=== PATIENT | female | born 1955 | race Caucasian/White ===

== ENCOUNTER → 2016-09-14 | Outpatient (CLI) | payer OTHER ==
[~2016-09-14] MED LIST: ASPI-586 PO; CITA20TA12 PO; ESTR1TAB24 PO; HCT25T PO; HYDR-3729 PO; IBUP-1773 PO; LVT.1T PO; MEDR2.5T6 PO; MTC10T; OMEG-109 PO; OMEP20CA12; POTA10TA36 PO
--- NOTE | 2016-09-15 17:39 | Diagnostic Imaging Report ---
Bilateral screening mammogram 2D views with tomosynthesis. The current study was also evaluated with a Computer Aided Detection (CAD) system. INDICATION: Screening. No current complaints stated on the questionnaire. COMPARISON: 05/20/15 FINDINGS: The breasts are composed of scattered fibroglandular densities. There are punctate scattered calcifications seen. Allowing for technique and positional differences, no suspicious change is seen. IMPRESSION: No significant change. ACR BI-RADS Category 2: Benign findings. Result letter will be mailed to the patient. Note: At least 10% of breast cancer is not imaged by mammography. Dictated by: Dictated on workstation # [id number]
== END ==
LOC: RAD 14:16
PROVIDERS: ATTEND Nurse Practitioner
DX: Z12.31 Encounter for screening mammogram for malignant neoplasm of breast (principal)
CPT/HCPCS: 77067

== ENCOUNTER 2016-11-14 20:23 | Inpatient (IN) | payer OTHER ==
[~2016-11-14] VITALS: Ht 154.9 cm; Wt 66.2 kg
[2016-11-14] MEDS ORDERED: CNC1KV INJ (20:46)
[2016-11-14] MEDS ORDERED: fentaNYL INJECTION 100 MCG/2 ML AMP IVP STA (21:14)
[2016-11-14 21:45] LABS: BASOPHILS % (AUTO) 0 % (0-10); EOSINOPHILS # (AUTO) 0.1 10^3/uL (0.0-0.3); EOSINOPHILS % (AUTO) 1 % (0-10); LYMPHOCYTES # (AUTO) 2.9 X 10^3 (1.0-4.0); LYMPHOCYTES % (AUTO) 22 % (12-44); MEAN CORPUSCULAR HEMOGLOBIN 31 PG (25-34); MEAN CORPUSCULAR HGB CONC 34 G/DL (32-36); MEAN CORPUSCULAR VOLUME 91 FL (80-99); MEAN PLATELET VOLUME 10.5 FL (7.4-10.4); MONOCYTES # (AUTO) 0.9 X 10^3 (0.0-1.0); MONOCYTES % (AUTO) 7 % (0-12); NEUTROPHILS # (AUTO) 8.9 X 10^3 (1.8-7.8); NEUTROPHILS % (AUTO) 69 % (42-75); PLATELET COUNT 287 10^3/uL (130-400); RED BLOOD COUNT 4.55 10^6/uL (4.35-5.85); RED CELL DISTRIBUTION WIDTH 13.1 % (10.0-14.5); WHITE BLOOD COUNT 12.8 10^3/uL (4.3-11.0)
[2016-11-14 22:03] LABS: ALANINE AMINOTRANSFERASE 21 U/L (0-55); ANION GAP 15 MMOL/L (5-14); ASPARTATE AMINO TRANSFERASE 29 U/L (5-34); BILIRUBIN,TOTAL 0.5 MG/DL (0.1-1.0); BLOOD UREA NITROGEN 14 MG/DL (7-18); BUN/CREATININE RATIO 19; CALCIUM 9.3 MG/DL (8.5-10.1); CARBON DIOXIDE 24 MMOL/L (21-32); CHLORIDE 100 MMOL/L (98-107); CREATININE SERUM 0.74 MG/DL (0.60-1.30); GFR ESTIMATED > 60; GLUCOSE 90 MG/DL (70-105); POTASSIUM 3.2 MMOL/L (3.6-5.0); SODIUM 139 MMOL/L (135-145); TOTAL PROTEIN 7.5 GM/DL (6.4-8.2)
[2016-11-14] MEDS ORDERED: NS IV 1000 ML 1,000 ML IV ONE (22:15)
[2016-11-14] MEDS ORDERED: ORPHENADRINE 60 MG/2 ML (NORFLEX) AMP IV STA (22:15)
[2016-11-14] MEDS ORDERED: HYDROmorphone (DILAUDID) 2 MG/ML VIAL IVP STA (22:15)
[2016-11-14] MEDS ORDERED: ONDANSETRON 4 MG/2 ML (SDV) Z0FRAN IVP ONE (22:15)
--- NOTE | 2016-11-14 22:16 | Diagnostic Imaging Report ---
PROCEDURE: CT head without contrast. TECHNIQUE: Multiple contiguous axial images were obtained through the brain without the use of intravenous contrast. INDICATION: 61-year-old female on aspirin, injured in fall, headache COMPARISONS: None. FINDINGS: Midline structures are not displaced. Lateral, third, and fourth ventricles are normal in size, shape and anatomic position. There is no evidence of mass, mass effect, hydrocephalus or hemorrhage. Love-white differentiation is normal. Is no sulcal effacement. There are no abnormal extra-axial fluid collections or hemorrhage. Basilar cisterns appear normal. Sinuses, orbits and mastoid air cells are normal. Bone windows show no calvarial changes. IMPRESSION: Unremarkable nonenhanced CT brain. Dictated by: Dictated on workstation # [id number]
--- NOTE | 2016-11-14 23:16 | ED Lower Extremity ---
General Chief Complaint: Lower Extremity Stated Complaint: RT TIB/FIB FRACTURE, INTRACTABLE PX Nursing Triage Note: ADIN Gonzalez.Carlos Manuel. TRANSFER FROM [facility]. Nursing Sepsis Screen: No Definite Risk Source: patient, family, other [place] [place] Exam Limitations: no limitations History of Present Illness Time seen by provider: 21:30 Initial Comments 61 yo female patient presents to the ED in [place] [facility] [place] Rt Tib/fib fx. patient states she was walking along an incline at [place]. States she lost her balance and fell down the hill. Denies hitting her head or LOC. Brea was taken to [facility] where conscious sedation and reduction was performed by the ED physician. Case was discussed with their orthopaedic surgeon, but he was not gleason operator this weekend and they did not have ortho coverage. He recommended to the ED physician for the patient to be sent to a facility with ortho coverage this evening. patient requested to come to [facility] as she has family in [place]. Patient reports pain is a 9/10 at this time. Denies neck pain, back pain, chest pain, SOA, numbness , tingling. patient does take 81 mg of ASA daily. Location Injury Occurred: home Onset: this afternoon Pain/Injury Location: right leg, right ankle Method of Injury: fell Modifying Factors: Worse With Movement Allergies and Home Medications Allergies Coded Allergies: meperidine (Verified Allergy, Severe, 11/15/16) severe nausea and vomiting morphine (Verified Allergy, Severe, 11/15/16) severe nausea and vomiting Uncoded Allergies: NARCOTIC SENSITIVITY (Adverse Reaction, Severe, NAUSEA & VOMITTING, ) Home Medications Aspirin 81 Mg Tablet.dr, 81 MG PO HS, (Reported) Citalopram Hydrobromide 20 Mg Tablet, 20 MG PO HS, (Reported) Cyanocobalamin 1,000 Mcg/Ml Inj, 1,000 MCG INJ MONTHLY, (Reported) TYPICALLY TAKES AROUND THE 16TH OF EVERY MONTH Docusate Sodium 250 Mg Capsule, 250 MG PO HS, (Reported) Estradiol 1 Mg Tablet, 1 MG PO DAILY, (Reported) Estradiol 42.5 Gm Cream.appl, 0.5 GM VG PRN, (Reported) Fexofenadine HCl 180 Mg Tablet, 180 MG PO DAILY, (Reported) Hydrochlorothiazide 25 Mg Tablet, 50 MG PO DAILY, (Reported) TAKES 2 (25 MG) TABLETS Levothyroxine Sodium 88 Mcg Tablet, 88 MCG PO DAILY, (Reported) Medroxyprogesterone Acetate 5 Mg Tablet, 5 MG PO DAILY, (Reported) Potassium Chloride 10 Meq Capsule.er, 10 MEQ PO DAILY, (Reported) Constitutional: No dizziness, No weakness EENTM: no symptoms reported Respiratory: No cough, No short of breath Cardiovascular: No chest pain, No palpitations Gastrointestinal: no symptoms reported Genitourinary: no symptoms reported Musculoskeletal: see HPI, No back pain, joint pain, No neck pain Skin: no symptoms reported Psychiatric/Neurological: Denies Headache, Denies Numbness, Denies Paresthesia , Denies Seizure, Denies Tingling, Denies Weakness All Other Systems Reviewed Negative Unless Noted: Yes (Negative excepted noted.) Past Bcfqsvs-Dechqv-Iigcnk Hx Patient Social History Alcohol Use: Denies Use Recreational Drug Use: No Smoking Status: Never a Smoker Recent Foreign Travel: No Contact w/Someone Who Travel: No Recent Infectious Disease Expo: No Recent Hopitalizations: No Immunizations Up To Date Tetanus Booster (TDap): Unknown Date of Influenza Vaccine: Nov 30, 2015 Seasonal Allergies Seasonal Allergies: No Surgeries History of Surgeries: Yes (ABDOMINOPLASTY,WISDOM TEETH EXT.,BREAST BIOPSY, d&C) Respiratory History of Respiratory Disorde: No Currently Using CPAP: No Currently Using BIPAP: No Cardiovascular History of Cardiac Disorders: No Neurological History of Neurological Disord: No Reproductive System : No Hx Reproductive Disorders: Yes (pmb) Sexually Transmitted Disease: No HIV/AIDS: No Female Reproductive Disorders: Denies 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 Gastrointestinal History of Gastrointestinal Di: Yes Gastrointestinal Disorders: Gastroesophageal Reflux Musculoskeletal History of Musculoskeletal Dis: No Endocrine History of Endocrine Disorders: Yes Endocrine Disorders: Hypothyroidsim HEENT Loss of Vision: Denies Hearing Impairment: Denies Cancer History of Cancer: No Psychosocial History of Psychiatric Problem: No Integumentary History of Skin or Integumenta: No Blood Transfusions History of Blood Disorders: No Reviewed Nursing Assessment Reviewed/Agree w Nursing PMH: Yes Family Medical History Significant Family History: No Pertinent Family Hx Physical Exam Vital Signs Vital Sign - Last 12Hours 11/14/16 20:46 Temp 99.1 Pulse 70 Resp 16 B/P (MAP) 127/66 Pulse Ox 94 O2 Delivery Room Air Capillary Refill : Less Than 3 Seconds General Appearance: WD/WN, no apparent distress HEENT: PERRL/EOMI, pharynx normal Neck: non-tender, full range of motion, supple, normal inspection Cardiovascular: normal peripheral pulses, regular rate, rhythm, no murmur Respiratory: lungs clear, normal breath sounds, no respiratory distress, no accessory muscle use Gastrointestinal: non tender, soft, No distended Back: normal inspection, no vertebral tenderness Hips: bilateral hip non-tender, bilateral hip normal inspection, bilateral hip normal range of motion, bilateral hip no evidence of injury Legs: left leg non-tender, left leg normal inspection, left leg normal range of motion, left leg no evidence of injury, right leg other (rt thigh nontender and no evidence of deformity, swelling, or ecchymosis. Rt distal leg splint intact.) Knees: bilateral knee non-tender, bilateral knee normal inspection, bilateral knee normal range of motion, bilateral knee no evidence of injury Ankles: left ankle non-tender, left ankle normal inspection, left ankle normal range of motion, left ankle no evidence of injury, right ankle other (splint intact) Feet: left foot non-tender, left foot normal inspection, left foot normal range of motion, left foot no evidence of injury, right foot other (rt splint intact. no cyanosis, ecchymosis, tenderness, swelling, or deformity of the toes. Capillary refill <3 seconds.) Neurologic/Tendon: normal sensation, normal motor functions, normal tendon functions, responds to pain, no evidence tendon injury Neurologic/Psychiatric: platform operations director II-XII nml as tested, no motor/sensory deficits, alert, normal mood/affect, oriented x 3 Skin: normal color, warm/dry Progress/Results/Core Measures Results/Orders Lab Results Laboratory Tests Test 11/14/16 21:35 Range/Units White Blood Count 12.8 H 4.3-11.0 10^3/uL Red Blood Count 4.55 4.35-5.85 10^6/uL Hemoglobin 14.1 11.5-16.0 G/DL Hematocrit 41 35-52 % Mean Corpuscular Volume 91 80-99 FL Mean Corpuscular Hemoglobin 31 25-34 PG Mean Corpuscular Hemoglobin Concent 34 32-36 G/DL Red Cell Distribution Width 13.1 10.0-14.5 % Platelet Count 287 130-400 10^3/uL Mean Platelet Volume 10.5 H 7.4-10.4 FL Neutrophils (%) (Auto) 69 42-75 % Lymphocytes (%) (Auto) 22 12-44 % Monocytes (%) (Auto) 7 0-12 % Eosinophils (%) (Auto) 1 0-10 % Basophils (%) (Auto) 0 0-10 % Neutrophils # (Auto) 8.9 H 1.8-7.8 X 10^3 Lymphocytes # (Auto) 2.9 1.0-4.0 X 10^3 Monocytes # (Auto) 0.9 0.0-1.0 X 10^3 Eosinophils # (Auto) 0.1 0.0-0.3 10^3/uL Basophils # (Auto) 0.0 0.0-0.1 10^3/uL Sodium Level 139 135-145 MMOL/L Potassium Level 3.2 L 3.6-5.0 MMOL/L Chloride Level 100 98-107 MMOL/L Carbon Dioxide Level 24 21-32 MMOL/L Anion Gap 15 H 5-14 MMOL/L Blood Urea Nitrogen 14 7-18 MG/DL Creatinine 0.74 0.60-1.30 MG/DL Estimat Glomerular Filtration Rate > 60 BUN/Creatinine Ratio 19 Glucose Level 90 70-105 MG/DL Calcium Level 9.3 8.5-10.1 MG/DL Total Bilirubin 0.5 0.1-1.0 MG/DL Aspartate Amino Transf (AST/SGOT) 29 5-34 U/L Alanine Aminotransferase (ALT/SGPT) 21 0-55 U/L Alkaline Phosphatase 47 40-136 U/L Total Protein 7.5 6.4-8.2 GM/DL Albumin 4.0 3.2-4.5 GM/DL My Orders Orders - SHERI AGUERO Outside Films For Comparison (11/14/16 ) Fentanyl Injection (Sublimaze Injection (11/14/16 21:14) Ct Head Wo (11/14/16 21:25) Saline Lock/Iv-Start (11/14/16 21:25) Cbc With Automated Diff (11/14/16 21:25) Comprehensive Metabolic Panel (11/14/16 21:25) Tibia/Fibula, Right, 2 Views (11/14/16 22:06) Hydromorphone Injection (Dilaudid Inject (11/14/16 22:15) Orphenadrine Injection (Norflex Injectio (11/14/16 22:15) Ns Iv 1000 Ml (Sodium Chloride 0.9%) (11/14/16 22:15) Ondansetron Injection (Zofran Injectio (11/14/16 22:15) Medications Given in ED Vital Signs/I&O Vital Sign - Last 12Hours 11/14/16 11/14/16 20:46 21:36 Temp 99.1 99.1 Pulse 70 Resp 16 B/P (MAP) 127/66 Pulse Ox 94 O2 Delivery Room Air Blood Pressure Mean: 86 Diagnostic Imaging Diagonstic Imaging: CT Plain Films/CT/US/NM/MRI: head Comments FINDINGS: Midline structures are not displaced. Lateral, third, and fourth ventricles are normal in size, shape and anatomic position. There is no evidence of mass, mass effect, hydrocephalus or hemorrhage. Love-white differentiation is normal. Is no sulcal effacement. There are no abnormal extra- axial fluid collections or hemorrhage. Basilar cisterns appear normal. Sinuses, orbits and mastoid air cells are normal. Bone windows show no calvarial changes. IMPRESSION: Unremarkable nonenhanced CT brain. Dictated by: Dictated on workstation # [id number] Reviewed: Reviewed by Me (radiology report reviewed by me) Diagonstic Imaging: Xray Plain Films/CT/US/NM/MRI: other (left tib/fib) Comments comminuted spiral fracture of the distal rt tibia with extension into the joint. spiral fracture of the distal fibula. Reviewed: Reviewed/Discussed (with Dr. Sharpe) Departure Communication (Admissions) Time/Spoke to Admitting Phy: 22:30 Communication Patient case discussed with Serenity Claire APRN for Dr. Gonzalez. She graciously accepts patient to their orthopaedic surgery service for pain control and surgical management in the AM. Progress Notes Patient seen and evaluated. [place] ED records reviewed. Pt is 61 yo, on asa, and sustained a fall. CT scan of the head to rule out skull fracture and bleed and baseline labs obtained. Two-view right ankle radiographs obtained at the request of Serenity Claire APRN. Patient was given 50 mcg of fentanyl IV as well as 0.5 mg of dilaudid. Patient was noted to have improvement in pain with the dilaudid. Plan for admission for an control as well as surgical management by Dr. Gonzalez. Plan for admission discussed with the patient and family. All verbalize understanding and agree with the treatment plan. Plan for admission discussed with Dr. Sharpe, he agrees with the plan of care. Impression Impression: Primary Impression: Closed fracture of right tibia and fibula Qualified Codes: S82.201A - Unspecified fracture of shaft of right tibia, initial encounter for closed fracture; S82.401A - Unspecified fracture of shaft of right fibula, initial encounter for closed fracture Additional Impression: Intractable pain Disposition: ADMITTED INPATIENT Condition: Stable Admissions Decision to Admit Reason: Admit from ER (General) Decision to Admit/Date: Nov 14, 2016 Time/Decision to Admit Time: 22:30 Departure-Patient Inst. Referrals: DANA NUNEZ DO (PCP) Primary Care Physician SHERI AGUERO Nov 14, 2016 23:16
[2016-11-14] MEDS ORDERED: METOCLOPRAMIDE INJ 10 MG/2 ML (REGLAN) IV PRN (23:45)
[2016-11-14] MEDS ORDERED: ONDANSETRON 4 MG/2 ML (SDV) Z0FRAN IV PRN (23:45)
[2016-11-14] MEDS: NS W/KCL 20 MEQ/L 1,000 ML IV SCH (23:56)
[2016-11-15] VITALS: BP 109/74
[2016-11-15] MEDS ORDERED: DOCU-143 PO (01:09)
[2016-11-15] MEDS ORDERED: FEXO180T84 PO (01:11)
[2016-11-15] MEDS: HYDROmorphone (DILAUDID) 2 MG/ML VIAL IV PRN ×3 (01:20→08:37)
[2016-11-15 04:00] VITALS: BP 123/58
[2016-11-15 05:14] LABS: BASOPHILS % (AUTO) 0 % (0-10); EOSINOPHILS # (AUTO) 0.1 10^3/uL (0.0-0.3); EOSINOPHILS % (AUTO) 2 % (0-10); LYMPHOCYTES # (AUTO) 1.9 X 10^3 (1.0-4.0); LYMPHOCYTES % (AUTO) 27 % (12-44); MEAN CORPUSCULAR HEMOGLOBIN 31 PG (25-34); MEAN CORPUSCULAR HGB CONC 33 G/DL (32-36); MEAN CORPUSCULAR VOLUME 93 FL (80-99); MEAN PLATELET VOLUME 10.3 FL (7.4-10.4); MONOCYTES # (AUTO) 0.7 X 10^3 (0.0-1.0); MONOCYTES % (AUTO) 10 % (0-12); NEUTROPHILS # (AUTO) 4.5 X 10^3 (1.8-7.8); NEUTROPHILS % (AUTO) 62 % (42-75); PLATELET COUNT 248 10^3/uL (130-400); RED BLOOD COUNT 4.02 10^6/uL (4.35-5.85); WHITE BLOOD COUNT 7.2 10^3/uL (4.3-11.0)
[2016-11-15 05:31] LABS: ALANINE AMINOTRANSFERASE 16 U/L (0-55); ALBUMIN 3.4 GM/DL (3.2-4.5); ANION GAP 9 MMOL/L (5-14); ASPARTATE AMINO TRANSFERASE 24 U/L (5-34); BILIRUBIN,TOTAL 0.5 MG/DL (0.1-1.0); BLOOD UREA NITROGEN 12 MG/DL (7-18); BUN/CREATININE RATIO 16; CALCIUM 8.1 MG/DL (8.5-10.1); CARBON DIOXIDE 27 MMOL/L (21-32); CHLORIDE 105 MMOL/L (98-107); CREATININE SERUM 0.75 MG/DL (0.60-1.30); GFR ESTIMATED > 60; GLUCOSE 95 MG/DL (70-105); POTASSIUM 3.5 MMOL/L (3.6-5.0); SODIUM 141 MMOL/L (135-145); TOTAL PROTEIN 6.1 GM/DL (6.4-8.2)
[2016-11-15] MEDS: NS W/KCL 20 MEQ/L 1,000 ML IV SCH (05:36)
[2016-11-15] MEDS: FAMOTIDINE 20MG/2ML IV (PEPCID) IV SCH ×2 (08:36→21:01)
--- NOTE | 2016-11-15 08:55 | Diagnostic Imaging Report ---
INDICATION: Left leg pain AP, oblique, and lateral views of the left tibia and fibula are performed. There is a comminuted obliquely oriented fracture of the distal tibia, this appears to extend to the ankle joint region. There is a fracture of the posterior malleolus of the distal tibia. There is an oblique fracture of the distal fibula above the ankle joint level, with about 5 mm of lateral displacement of the distal fragment relative to proximal fragment. IMPRESSION: Comminuted distal tibial fracture with interarticular extension to the ankle joint, including a posterior malleolar fracture. Oblique fracture of the distal fibula as above. The proximal shafts of the tibia and fibula are otherwise unremarkable. Dictated by: Dictated on workstation # [id number]
[2016-11-15 09:00] VITALS: BP 133/65
[2016-11-15] MEDS ORDERED: ceFAZolin 2 GM/50 ML NS 50 ML IV NR (10:31)
[2016-11-15] MEDS ORDERED: BUPIVACAINE 0.5% 30 ML (SENSORCAINE) VIAL ONE (10:38)
[2016-11-15] MEDS ORDERED: proPOfol 200 MG/20 ML (DIPRIVAN) VIAL IV ONE (10:41)
[2016-11-15] MEDS ORDERED: LIDOCAINE PF 2% 5 ML (XYLOCAINE) VIAL ONE (10:41)
[2016-11-15] MEDS ORDERED: SEVOFLURANE (ULTANE) 15 ML INHAL SOLN ONE (10:41)
[2016-11-15] MEDS ORDERED: fentaNYL INJECTION 100 MCG/2 ML AMP ONE ×2 (10:42→11:56)
[2016-11-15] MEDS ORDERED: MIDAZOLAM 2 MG/2 ML (VERSED) VIAL ONE (10:46)
--- NOTE | 2016-11-15 10:51 | Consultation ---
History of Present Illness History of Present Illness Patient Consulted On(veronica/time) 11/15/16 10:46 Time Seen by Provider: 10:40 History of Present Illness 61 yo female patient presents to the ED in transfer by private vehicle [place] [facility] [place] with Rt Tib/fib fx. patient states she was walking along an incline at their [place] on [address]. States she lost her balance and fell down the hill. Denies hitting her head or LOC. Taken to [facility] where conscious sedation and reduction was performed by the ED physician. Case was discussed with their orthopaedic surgeon, but he was not secondary set up man this weekend and they did not have ortho coverage. Patient requested to come to [facility] for ortho consult as she has family in [place]. Allergies and Home Medications Allergies Coded Allergies: meperidine (Verified Allergy, Severe, 11/15/16) severe nausea and vomiting morphine (Verified Allergy, Severe, 11/15/16) severe nausea and vomiting Uncoded Allergies: NARCOTIC SENSITIVITY (Adverse Reaction, Severe, NAUSEA & VOMITTING, ) Home Medications Aspirin 81 Mg Tablet.dr, 81 MG PO DAILY, (Reported) Citalopram Hydrobromide 20 Mg Tablet, 20 MG PO HS, (Reported) Cyanocobalamin 1,000 Mcg/Ml Inj, (Reported) Docusate Sodium 100 Mg Capsule, 100 MG PO DAILY, (Reported) Estradiol 1 Mg Tablet, 1 MG PO DAILY, (Reported) Fexofenadine HCl 180 Mg Tablet, 180 MG PO DAILY, (Reported) Hydrochlorothiazide 25 Mg Tablet, 50 MG PO DAILY, (Reported) Levothyroxine Sodium 100 Mcg Tablet, 100 MCG PO DAILY, (Reported) Medroxyprogesterone Acetate 2.5 Mg Tablet, 2.5 MG PO DAILY, (Reported) Potassium Chloride 10 Meq Tab.er.prt, 10 MEQ PO DAILY, (Reported) Past Aaokafg-Wtysqm-Akcbyj Hx Patient Social History Alcohol Use: Occasionally Uses Alcohol Beverage of Choice: Beer Recreational Drug Use: No Smoking Status: Never a Smoker Recent Foreign Travel: No Contact w/Someone Who Travel: No Recent Infectious Disease Expo: No Recent Hopitalizations: No Immunizations Up To Date Tetanus Booster (TDap): Unknown Date of Influenza Vaccine: Nov 30, 2015 Seasonal Allergies Seasonal Allergies: No Surgeries History of Surgeries: Yes (ABDOMINOPLASTY,WISDOM TEETH EXT.,BREAST BIOPSY, d&C) Respiratory History of Respiratory Disorde: No Currently Using CPAP: No Currently Using BIPAP: No Cardiovascular History of Cardiac Disorders: No Neurological History of Neurological Disord: No Reproductive System : No Hx Reproductive Disorders: Yes (pmb) Sexually Transmitted Disease: No HIV/AIDS: No Female Reproductive Disorders: 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 Genitourinary History of Genitourinary Disor: No Gastrointestinal History of Gastrointestinal Di: Yes Gastrointestinal Disorders: Gastroesophageal Reflux, Hiatal Hernia Musculoskeletal History of Musculoskeletal Dis: No Endocrine History of Endocrine Disorders: Yes Endocrine Disorders: Hypothyroidsim HEENT Loss of Vision: Denies Hearing Impairment: Denies Cancer History of Cancer: No Psychosocial History of Psychiatric Problem: No Integumentary History of Skin or Integumenta: No Blood Transfusions History of Blood Disorders: No Reviewed Nursing Assessment Reviewed/Agree w Nursing PMH: Yes Family Medical History Significant Family History: No Pertinent Family Hx Physical Exam-General Problems Physical Exam Vital Signs Vital Sign - Last 12Hours 11/14/16 11/14/16 20:46 23:15 Temp 99.1 Pulse 70 Resp 16 B/P (MAP) 127/66 Pulse Ox 94 O2 Delivery Room Air O2 Flow Rate 2.00 Capillary Refill : Less Than 3 SecondsLess Than 3 Seconds Assessment/Plan Assessment/Plan Admission Diagnosis/Plan Dx: Right comminuted distal tibia fracture with interarticular extension Posterior malleolar fracture right ankle Oblique fracture of the right distal fibula Plan: ORIF right distal fibula Will discharge Wednesday or Wednesday Anticipate ORIF right distal tibia in 7-10 days Clinical Quality Measures DVT/VTE Risk/Contraindication: Risk Factor Score Per Nursin RFS Level Per Nursing on Admit: 4+=Very High BLAKE QUILES SAND BUFFER Nov 15, 2016 10:51
[2016-11-15] MEDS: LACTATED RINGERS 1,000 ML IV PRN ×2 (11:09→12:15)
[2016-11-15] MEDS ORDERED: DEXAMETHASONE 10 MG/ML (DECADRON) 1 ML VIAL ONE (11:40)
[2016-11-15] MEDS ORDERED: PHENYLEPHRINE 100 MCG/ML 10 ML (ANESTHESIA) SYR ONE (11:44)
[2016-11-15] MEDS ORDERED: HYDROmorphone (DILAUDID) 2 MG/ML VIAL ONE ×2 (11:56→14:29)
[2016-11-15] MEDS ORDERED: LACTATED RINGERS 1,000 ML IV ONE (12:11)
--- NOTE | 2016-11-15 12:25 | Diagnostic Imaging Report ---
Indication: Intraoperative fluoroscopy performed during ORIF of distal fibular fracture. Pain Comparison: None available. Findings and Impression: Multiple fluoroscopic images were obtained during ORIF of distal fibula. These demonstrate placement of a semicircular plate with multiple screws. There is also a single interfragmentary screw in place.. A total of 7 seconds or fluoroscopy was utilized for this procedure performed by Dr. Gonzalez. Please see operative report for complete details. Dictated by: Dictated on workstation # [id number]
--- NOTE | 2016-11-15 12:31 | CONSULTATION REPORT ---
DATE OF SERVICE: This 61-year-old female was transferred from [facility] after suffering a closed fracture to her distal tibia and fibula. She was initially seen by Job ID: [id number] DocumentID: [id number] Dictated Date: 11/15/2016 12:20:16 Framework Developer Date: 11/15/2016 12:30:22 Dictated By: GABRIELLA MEJIA DO
[2016-11-15] MEDS ORDERED: 1/2 NS IV SOLUTION 1,000 ML IV SCH (12:39)
[2016-11-15] MEDS ORDERED: LEVO88TA54 PO (12:40)
[2016-11-15] MEDS ORDERED: POTA10CA43 PO (12:40)
[2016-11-15] MEDS ORDERED: MEDR5TAB4 PO (12:40)
[2016-11-15] MEDS ORDERED: diphenhydrAMINE 50 MG/ML INJ (BENADRYL) IV PRN (12:45)
[2016-11-15] MEDS ORDERED: METOCLOPRAMIDE INJ 10 MG/2 ML (REGLAN) IV PRN (12:45)
[2016-11-15] MEDS ORDERED: ONDANSETRON 4 MG/2 ML (SDV) Z0FRAN IV PRN (12:45)
[2016-11-15] MEDS ORDERED: KETOROLAC 30 MG/ML VIAL IVP ONE (12:45)
[2016-11-15] MEDS ORDERED: HYDROmorphone (DILAUDID) 2 MG/ML VIAL IVP PRN (12:45)
[2016-11-15] MEDS ORDERED: NALOXONE 0.4 MG/ML 1 ML (NARCAN) VIAL IV PRN ×2 (12:45)
[2016-11-15] MEDS ORDERED: ONDANSETRON 4 MG/2 ML (SDV) Z0FRAN IVP PRN (12:45)
[2016-11-15] MEDS ORDERED: HYDR25TA4 PO (12:46)
[2016-11-15] MEDS ORDERED: BISACODYL 10 MG SUPP (DULCOLAX) PR PRN (13:00)
[2016-11-15] MEDS ORDERED: PROMETHAZINE INJ 25 MG/ML (PHENERGAN) AMP IVP PRN (13:00)
[2016-11-15] MEDS ORDERED: D5 1/2 NS 1000 ML IV SOLUTION 1,000 ML IV SCH (13:00)
[2016-11-15] MEDS ORDERED: ceFAZolin 2 GM/50 ML NS 50 ML IV SCH (13:00)
[2016-11-15 13:45] VITALS: BP 130/77
[2016-11-15] MEDS ORDERED: ESTR42.52 VG (14:28)
[2016-11-15] MEDS ORDERED: DOCU250C11 PO (14:28)
[2016-11-15] MEDS: NS IV 1000 ML 1,000 ML IV SCH (15:39)
[2016-11-15 16:00] VITALS: BP 91/53
[2016-11-15] MEDS: ONDANSETRON 4 MG/2 ML (SDV) Z0FRAN IVP PRN ×2 (16:37→22:11)
[2016-11-15] MEDS: KETOROLAC 30 MG/ML VIAL IVP PRN ×2 (16:39→22:11)
[2016-11-15] MEDS: ceFAZolin 2 GM/50 ML NS 50 ML IV SCH (17:44)
[2016-11-15] MEDS: ACETAMINOPHEN 325 MG TABLET/CAPLET (TYLENOL) PO PRN (19:01)
[2016-11-15 20:00] VITALS: BP 94/55
--- NOTE | 2016-11-15 20:51 | Progress Note-Standard ---
Standard Progress Note Progress Notes/Assess & Plan Progress/Assessment & Plan post op note orif right distal fibula with 8 hole plate spinal anesthesia chiropractor assistant Salomon SECURITY REPRESENTATIVE ebl 50ml dx closed displaced distal tib/fib fxs no complications due to high risk of skin problems, patient will be discharged and return to OR in 7-10 days for orif of tibia GABRIELLA MEJIA DO Nov 15, 2016 20:51
[2016-11-16 00:48] VITALS: BP 85/51
[2016-11-16] MEDS: ceFAZolin 2 GM/50 ML NS 50 ML IV SCH (01:31)
[2016-11-16] MEDS: ACETAMINOPHEN 325 MG TABLET/CAPLET (TYLENOL) PO PRN ×2 (01:50→07:49)
[2016-11-16] MEDS: NS IV 1000 ML 1,000 ML IV SCH ×2 (03:19→07:14)
[2016-11-16 04:20] VITALS: BP 84/41
[2016-11-16 05:10] LABS: MEAN PLATELET VOLUME 10.6 FL (7.4-10.4); RED BLOOD COUNT 3.36 10^6/uL (4.35-5.85); WHITE BLOOD COUNT 9.1 10^3/uL (4.3-11.0)
[2016-11-16 05:26] LABS: ANION GAP 8 MMOL/L (5-14); BLOOD UREA NITROGEN 11 MG/DL (7-18); BUN/CREATININE RATIO 14; CALCIUM 7.9 MG/DL (8.5-10.1); CARBON DIOXIDE 26 MMOL/L (21-32); CHLORIDE 106 MMOL/L (98-107); CREATININE SERUM 0.79 MG/DL (0.60-1.30); GFR ESTIMATED > 60; GLUCOSE 103 MG/DL (70-105); POTASSIUM 3.3 MMOL/L (3.6-5.0); SODIUM 140 MMOL/L (135-145)
--- NOTE | 2016-11-16 07:46 | CONSULTATION REPORT ---
DATE OF SERVICE: This 61-year-old female was transferred from [facility] after suffering a closed fracture to distal tibia and fibula. She was initially seen by , BROADCAST CORRESPONDENT and later seen by me, at which time we discussed the closed injury and that my preference on these is to fix the fibula and then come back at 1-2 weeks and fix the tibia. She does not have a great deal of swelling at this time, but I have seen some of these that did not at the time, but got quite swollen. There is a 50% risk of skin problems if these fractures are done early and only about 10% risk if they are done at 1-2 weeks. She is agreeable with this. She is scheduled for surgery later today. She has been warned that she will be touch toe weight-bearing only for the next probably 3 months, as it just takes that long to heal and there is probably a 5-10% incidence of delayed union or non-union. The risks include skin problems, infection, stiffness and many of these do require outpatient physical therapy after they are healed. Job ID: [id number] DocumentID: [id number] Dictated Date: 11/15/2016 12:20:16 Cone Examiner Date: 11/15/2016 12:32:32 Dictated By: GABRIELLA MEJIA DO
[2016-11-16 08:41] VITALS: BP 94/60
[2016-11-16] MEDS ORDERED: ENOXAPARIN 40 MG/0.4 ML (LOVENOX) SYR SC SCH (09:00)
[2016-11-16] MEDS ORDERED: ESTRADIOL VAGINAL CREAM 42.5 GM (ESTRACE) VG SCH (09:30)
[2016-11-16] MEDS ORDERED: CYANOCOBALAMIN INJ 1000 MCG/ML INJ SCH (09:30)
[2016-11-16] MEDS: FAMOTIDINE 20MG/2ML IV (PEPCID) IV SCH (09:32)
--- NOTE | 2016-11-16 09:37 | Consultation-Hospitalist ---
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 Gonzalez. At this current time I have reconciled all of her home medication of which she is very sensitive being off all hormones so I restarted those that she will be on anticoagulation for DVT prophylaxis due to the cast in immobility high risk for right lower extremity DVT. At this current time she declines any narcotics because they nauseate her and she is status post Scarlett fundoplication and cannot have emesis so she refuses all pain medication products except for Tylenol and ibuprofen. Source: patient Exam Limitations: no limitations Date Seen 11/16/16 Attending Physician Constantino Gonzalez DO PCP Eric Whitaker DO Referring Physician Date of Admission Nov 14, 2016 at 22:53 Home Medications & Allergies Home Medications Reviewed patient Home Medication Reconciliation Form Allergies Allergies Coded Allergies meperidine (Verified Allergy, Severe, 11/15/16) severe nausea and vomiting morphine (Verified Allergy, Severe, 11/15/16) severe nausea and vomiting Uncoded Allergies NARCOTIC SENSITIVITY ( Adverse Reaction, Severe, NAUSEA & VOMITTING, 02/15/07) Past Wqdkvyc-Odsfom-Acrbnf Hx Patient Social History Marrital Status: 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: 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 (nurse) Alcohol Use: Occasionally Uses Alcohol Beverage of Choice: Beer Recreational Drug Use: No Smoking Status: Never a Smoker Physical Abuse Screen: No Sexual Abuse: No Recent Foreign Travel: No Contact w/other who traveled: No Recent Hopitalizations: No Recent Infectious Disease Expo: No Immunizations Up To Date Tetanus Booster (TDap): Unknown Date of Influenza Vaccine: Nov 30, 2015 Seasonal Allergies Seasonal Allergies: No Surgeries Yes (ABDOMINOPLASTY,WISDOM TEETH EXT.,BREAST BIOPSY, d&C) Respiratory No Currently Using CPAP: No Currently Using BIPAP: No Cardiovascular No Neurological No Reproductive System : No Hx Reproductive Disorders: Yes (pmb) Sexually Transmitted Disease: No HIV/AIDS: No Female Reproductive Disorders: Denies 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 Genitourinary No Gastrointestinal Yes Gastroesophageal Reflux, Hiatal Hernia Musculoskeletal No Endocrine History of Endocrine Disorders: Yes Endocrine Disorders: Hypothyroidsim HEENT Loss of Vision: Denies Hearing Impairment: Denies Cancer No Psychosocial History of Psychiatric Problem: No Integumentary History of Skin or Integumenta: No Blood Transfusions History of Blood Disorders: No Reviewed Nursing Assessment Reviewed/Agree w Nursing PMH: Yes Family Medical History Significant Family History: No Pertinent Family Hx Review of Systems Constitutional: see HPI EENTM: no symptoms reported Respiratory: no symptoms reported Cardiovascular: no symptoms reported Gastrointestinal: no symptoms reported Genitourinary: no symptoms reported Musculoskeletal: joint pain (right leg) Psychiatric/Neurological: No Symptoms Reported All Other Systems Reviewed Negative Unless Noted: Yes Physical Exam Physical Exam Vital Signs Vital Sign - Last 12Hours 11/14/16 11/14/16 20:46 23:15 Temp 99.1 Pulse 70 Resp 16 B/P (MAP) 127/66 Pulse Ox 94 O2 Delivery Room Air O2 Flow Rate 2.00 Capillary Refill : Less Than 3 SecondsLess Than 3 Seconds General Appearance: No Apparent Distress, WD/WN Eyes: Bilateral Eye Normal Inspection, Bilateral Eye PERRL HEENT: PERRL/EOMI, Normal ENT Inspection, Pharynx Normal Neck: Full Range of Motion, Normal Inspection, Non Tender, Supple, Carotid Bruit Respiratory: Chest Non Tender, Lungs Clear, Normal Breath Sounds, No Accessory Muscle Use, No Respiratory Distress Cardiovascular: Regular Rate, Rhythm, No Edema, No Gallop, No JVD, No Murmur, Normal Peripheral Pulses Gastrointestinal: Normal Bowel Sounds, No Organomegaly, No Pulsatile Mass, Non Tender, Soft Back: Normal Inspection, No CVA Tenderness, No Vertebral Tenderness Extremity: Normal Capillary Refill, Normal Inspection, Normal Range of Motion ( except right leg with cast in place), Non Tender, No Calf Tenderness, No Pedal Edema Neurologic/Psychiatric: Alert, Oriented x3, No Motor/Sensory Deficits, Normal Mood/Affect Skin: Normal Color, Warm/Dry Lymphatic: No Adenopathy Results Results/Procedures Lab Laboratory Tests 11/14/16 21:35 11/15/16 05:00 11/16/16 04:50 Assessment/Plan Admission Diagnosis Assessment: Acute right tibia fibula fracture status post uncomplicated repair High risk for DVT due to hormone replacement in addition to orthopedic surgery with immobile right leg in cast Hypothyroidism Status post Scarlett fundal medication cannot have emesis so declines all narcotics that nauseated her Postop anemia due to blood loss Hypokalemia Assessment and Plan Plan: Discharge planning Walker Anticoagulation for DVT prophylaxis short-term Repeat surgery by Dr. Gonzalez and via [place] as planned by Dr. Gonzalez Reconcile all home meds Declines any pain medication Clinical Quality Measures DVT/VTE Risk/Contraindication: Risk Factor Score Per Nursin RFS Level Per Nursing on Admit: 4+=Very High ROGERS PITTS DO Nov 16, 2016 09:37
[2016-11-16] MEDS ORDERED: ENOX40DI13 SQ (09:42)
--- NOTE | 2016-11-16 10:08 | Physical Therapy Ortho Eval ---
PT Orthopedic Evaluation Type of Surgery right tib/fix distal fracture Prior Level of Function Current Living Status: Spouse Locomotion (Upon Admit): Independent Subjective Subjective Agrees to PT Entry Into Home: Level Entry Motor Control Motor Control: Motor Control WNL ROM ROM: WFL, except focal deficit Strength Strength: WFL Transfer Transfers (B, C, W/C) (FIM): 7 Gait Gait Assistive Device: FWW and knee scooter Weight Bearing Restriction: Non Weight Bearing Location Restriction: RT FOOT Gait (FIM): 2 Distance (FIM): 2=280-93 ft Distance: 50' Gait Level of Assist: 5 Summary/Comments also with knee scooter x 150' SBA Treatment Rendered Exercise Instruction: Quad Sets, Heel Slides Assessment/Goals Goal Time Frame: 1 Visit Understands HEP: Yes Safe Ambulation: Yes Plan Treatment Plan: Discharge, Education, Functional Activity Tolerated, Gait, Safety, Therapeutic Exercise PT/Family Agrees to Plan: Yes Time Time In: 916 Time Out: 926 Total Billed Treatment Time: 10 Billed Treatment Time 1 visit [facility] 10 min JOY Robison PT Nov 16, 2016 10:07
[2016-11-16] MEDS ORDERED: KCL 10 MEQ TAB (MICRO K) PO SCH (10:11)
--- NOTE | 2016-11-16 10:31 | Anesthesia-General Post-Op ---
General Patient Condition Mental Status/LOC: Same as Preop Cardiovascular: Satisfactory Nausea/Vomiting: Absent Respiratory: Satisfactory Pain: Controlled Complications: Absent Post Op Complications Complications None Follow Up Care/Instructions Patient Instructions None needed. Anesthesia/Patient Condition Patient Condition Patient is doing well, no complaints, stable vital signs, no apparent adverse anesthesia problems. No complications reported per nursing. D/C home per [facility] [place] Criteria: No MAKENNA WHITE CRNA Nov 16, 2016 10:31
--- NOTE | 2016-11-16 10:49 | OPERATIVE REPORT ---
DATE OF SERVICE: PREOPERATIVE DIAGNOSIS Closed displaced fracture right distal tibia and fibula. POSTOPERATIVE DIAGNOSIS Closed displaced fracture right distal tibia and fibula. PROCEDURE: Open reduction internal fixation right distal fibula. ENVIRONMENTAL SCIENCES PROFESSOR: Serenity Claire NP GROSS PATHOLOGY: The patient suffered injury last evening and with closed injuries, has spiral fracture of her tibia and fibula. We did fix the fibula today. She has some mild to moderate swelling. She does not have any fracture blisters at this time and we did place one lag screw anterior to posterior across the fracture and then and then placed a fixation plate, 8-hole plate with 3 locking screws and 3 cortical screws later. The repair was stable. The tibia was reasonably well maintained at this point. PROCEDURE: The patient was given spinal anesthetic. Right leg was prepped with ChloraPrep and draped in the usual manner. Tourniquet inflated to 300 mmHg for 26 minutes. Lateral incision was made 5 to 12 cm the lateral cutaneous branch. The sural nerve was identified and preserved. The fracture was identified and held with 2 clamps while lag screw was placed from anterior to posterior. We did place an 8-hole tubular plate over this with a mix of cortical and cancellous screws, 3 proximal and 3 distal. The fracture was stable. And seen in both the AP and lateral projection on fluoro and the tibia then reasonably well reduced and stable at this point. At this time, the tourniquet was deflated. The area was irrigated. Closed in layers with 0 Vicryl, 2-0 Vicryl and russell. Short-leg splint was applied. She will be admitted back to the floor and discharged in 24-48 hours. She will be home with her leg elevated over the next 7-10 days until we bring her back for definitive surgery of the tibia. Serenity Claire was required in this case in order to retract, aid and reduction of the fracture as well as drilling and placement of screws, closure and application of dressing and splint. Job ID: [id number] DocumentID: [id number] Dictated Date: 11/15/2016 12:20:16 Running Specialist Date: 11/15/2016 12:47:28 Dictated By: GABRIELLA MEJIA DO
[2016-11-16 12:25] VITALS: BP 94/60
[2016-11-16] MEDS ORDERED: SENNA W/DOCUSATE (SENOKOT S) TABLET PO SCH (21:00)
[2016-11-16] MEDS ORDERED: DOCUSATE SODIUM 100 MG (COLACE) CAP PO SCH (21:00)
[2016-11-16] MEDS ORDERED: FAMOTIDINE 20 MG (PEPCID) TABLET PO SCH (21:00)
[2016-11-16] MEDS ORDERED: ASPIRIN E.C. 81 MG (ECOTRIN) TAB PO SCH (21:00)
[2016-11-17] MEDS ORDERED: ESTRADIOL 1 MG TAB (ESTRACE) PO SCH (09:00)
[2016-11-17] MEDS ORDERED: MEDROXYPROGESTERONE ACETATE PO SCH (09:00)
[2016-11-17] MEDS ORDERED: HYDROCHLOROTHIAZIDE 25 MG (HCTZ) TAB PO SCH (09:00)
[2016-11-17] MEDS ORDERED: LORATADINE (CLARITIN) 10 MG TAB PO SCH (09:00)
[2016-11-17] MEDS ORDERED: LEVOTHYROXINE 88 MCG (LEVOTHORID) TAB PO SCH (09:00)
== END 2016-11-16 12:10 | disposition home or self-care (01) | DRG 493 ==
LOC: EDUNIT# 20:23 → ER 20:26 → 4TH 22:53
PROVIDERS: ADMIT Orthopaedic Surgery; ATTEND Orthopaedic Surgery
PROC: 0QSJ04Z Reposition Right Fibula with Internal Fixation Device, Open Approach (ICD-10-PCS; principal; 2016-11-15 11:08)
DX: S82.251A Displaced comminuted fracture of shaft of right tibia, initial encounter for closed fracture (principal); S82.441A Displaced spiral fracture of shaft of right fibula, initial encounter for closed fracture; D62 Acute posthemorrhagic anemia; E87.6 Hypokalemia; E03.9 Hypothyroidism, unspecified; K21.9 Gastro-esophageal reflux disease without esophagitis; W17.81XA Fall down embankment (hill), initial encounter; Y92.018 Other place in single-family (private) house as the place of occurrence of the external cause; Y93.01 Activity, walking, marching and hiking
CPT/HCPCS: 36415; 70450; 73590; 80048; 80053; 85025; 85027; 87081; 94664; 94760

== ENCOUNTER → 2017-09-14 | Outpatient (CLI) | payer BC ==
[~2017-09-14] MED LIST changes: +CNC1KV INJ; +DOCU-143 PO; +DOCU250C11 PO; +ENOX40DI13 SQ; +ESTR42.52 VG; +FEXO180T84 PO; +HYDR25TA4 PO; +LEVO88TA54 PO; +MEDR5TAB4 PO; +POTA10CA43 PO
--- NOTE | 2017-09-14 17:56 | Diagnostic Imaging Report ---
INDICATION: Routine screening. Comparison is made with prior mammograms from 09/14/2016 and 05/20/2015. 2-D and 3-D bilateral screening mammography was performed. The current study was also evaluated with a Computer Aided Detection (CAD) system. FINDINGS: Scattered fibroglandular densities are identified bilaterally. A density in the posterior left breast just below the nipple line is seen on the MLO which appears more prominent on today's study. Additional views are recommended. Right breast is stable. No suspicious calcifications are seen. Axillae are unremarkable. IMPRESSION: Left breast density. Additional views including spot compression and ML views are recommended for further evaluation. ACR BI-RADS Category 0: Incomplete. (Needs additional imaging evaluation). Result letter will be mailed to the patient. Note: At least 10% of breast cancer is not imaged by mammography. Dictated by: Dictated on workstation # [id number]
== END ==
LOC: RAD 12:35
PROVIDERS: ATTEND Nurse Practitioner
DX: Z12.31 Encounter for screening mammogram for malignant neoplasm of breast (principal)
CPT/HCPCS: 77067

== ENCOUNTER → 2017-09-27 | Outpatient (CLI) | payer BC ==
--- NOTE | 2017-09-27 13:54 | Diagnostic Imaging Report ---
INDICATION: Left breast density. The patient presents for additional views. COMPARISON: Correlation is made with prior mammogram from 09/14/2017 as well as 09/14/2016 and 05/20/2015. TECHNIQUE: 2D and 3D diagnostic mammography was performed on the left including spot compression MLO and conventional 90 degree lateral views. The current study was also evaluated with a Computer Aided Detection (CAD) system. FINDINGS: The area of density noted in the posterior left breast appears to disperse on the ML view. No discrete mass is seen on the spot compression MLO view. This most likely represents glandular tissue. No suspicious calcifications are seen. IMPRESSION: Additional views fail to demonstrate a discrete mass. Even so, a followup left mammogram in 6 months is recommended to show continued stability. ACR BI-RADS Category 3: Probably benign findings. Result letter will be mailed to the patient. Note: At least 10% of breast cancer is not imaged by mammography. Dictated by: Dictated on workstation # [id number]
== END ==
LOC: RAD 12:02
PROVIDERS: ATTEND Internal Medicine
DX: R92.2 Inconclusive mammogram (principal)

== ENCOUNTER → 2018-05-16 | Outpatient (CLI) | payer BC ==
--- NOTE | 2018-05-16 21:25 | Diagnostic Imaging Report ---
INDICATION: Six-month followup left breast density. CORRELATION is made with prior mammogram from 09/14/2017 and 09/14/2016. FINDINGS: Unilateral left 2-D and 3-D diagnostic mammography was performed. This included initial CC, MLO and mediolateral views as well as rolled cc views. Density in the central left breast on the CC view persists and appears to be stable. No definite corresponding density on the MLO or ML views is seen. There are no suspicious calcifications. The left axilla is unremarkable. IMPRESSION: BI-RADS 3 Stable left mammogram. Continued followup with repeat exam in 6 months is recommended to show continued stability. ACR BI-RADS Category 3: Probably benign findings. Result letter will be mailed to the patient. Note: At least 10% of breast cancer is not imaged by mammography. Dictated by: Dictated on workstation # [id number]
== END ==
LOC: RAD 12:35
PROVIDERS: ATTEND Nurse Practitioner
DX: R92.2 Inconclusive mammogram (principal)

== ENCOUNTER 2018-10-04 12:44 | Outpatient (CLI) | payer MEDICARE ==
[~2018-10-04] VITALS: Ht 153 cm; Wt 64.4 kg
[2018-10-04 12:52] VITALS: BP 125/72
[2018-10-04] MEDS ORDERED: LEVO100T7 PO (13:00)
[2018-10-04] MEDS ORDERED: ESTR0.5T PO (13:00)
[2018-10-04] MEDS ORDERED: MEDR2.5T6 PO (13:00)
[2018-10-04 13:32] LABS: BASOPHILS % (AUTO) 0 % (0-10); EOSINOPHILS # (AUTO) 0.1 10^3/uL (0.0-0.3); EOSINOPHILS % (AUTO) 2 % (0-10); HEMATOCRIT 43 % (35-52); HEMOGLOBIN 14.5 G/DL (11.5-16.0); LYMPHOCYTES # (AUTO) 2.4 X 10^3 (1.0-4.0); LYMPHOCYTES % (AUTO) 32 % (12-44); MEAN CORPUSCULAR HEMOGLOBIN 31 PG (25-34); MEAN CORPUSCULAR HGB CONC 34 G/DL (32-36); MEAN CORPUSCULAR VOLUME 90 FL (80-99); MEAN PLATELET VOLUME 10.3 FL (7.4-10.4); MONOCYTES # (AUTO) 0.8 X 10^3 (0.0-1.0); MONOCYTES % (AUTO) 11 % (0-12); NEUTROPHILS # (AUTO) 4.1 X 10^3 (1.8-7.8); NEUTROPHILS % (AUTO) 55 % (42-75); PLATELET COUNT 303 10^3/uL (130-400); WHITE BLOOD COUNT 7.4 10^3/uL (4.3-11.0)
[2018-10-04 13:33] LABS: BILIRUBIN,URINE NEGATIVE (NEGATIVE); CLARITY,URINE SLIGHTLY CLOUDY; COLOR,URINE YELLOW; GLUCOSE, URINE (UA) NEGATIVE (NEGATIVE); KETONES,URINE NEGATIVE (NEGATIVE); LEUKOCYTE ESTERASE ,URINE NEGATIVE (NEGATIVE); NITRITE,URINE NEGATIVE (NEGATIVE); PH,URINE 8 (5-9); PROTEIN,URINE NEGATIVE (NEGATIVE); UROBILINOGEN,URINE NORMAL (NORMAL)
[2018-10-04 13:50] LABS: BACTERIA,URINE NEGATIVE /HPF; RBC,URINE RARE /HPF; SQUAMOUS EPITHELIAL CELL,UR 0-2 /HPF
[2018-10-04] MEDS ORDERED: OMEP20TA7 PO (13:51)
[2018-10-04] MEDS ORDERED: ROSU5TAB PO (13:51)
== END 2018-10-04 13:30 | disposition home or self-care (01) ==
LOC: PREOP 12:44
PROVIDERS: ATTEND Obstetrics & Gynecology
DX: Z01.818 Encounter for other preprocedural examination (principal); N95.0 Postmenopausal bleeding
CPT/HCPCS: 36415; 81000; 85025; 86850; 86900; 86901; 87081

== ENCOUNTER → 2018-10-24 | Outpatient (CLI) | payer MEDICARE ==
[~2018-10-24] MED LIST changes: +ACET-77 PO; +ESTR0.5T PO; +LEVO100T7 PO; +OMEP20TA7 PO; +ROSU5TAB PO
--- NOTE | 2018-10-24 22:15 | Diagnostic Imaging Report ---
INDICATION: Six-month followup. Comparison made with prior examination 05/16/2018 and 09/14/2017. The current study was also evaluated with a Computer Aided Detection (CAD) system. 3-D Tomographic imaging was also performed. FINDINGS: There are scattered fibroglandular densities bilaterally. The previously described density in the posterior central left breast is no longer seen. There are a few benign type calcifications. There is no new dominant mass, spiculated lesion or suspicious calcification identified. Skin nipples and axilla are unremarkable. IMPRESSION: Benign. ACR BI-RADS Category 2: Benign findings. Result letter will be mailed to the patient. Note: At least 10% of breast cancer is not imaged by mammography. Dictated by: Dictated on workstation # [id number]
== END ==
LOC: RAD 12:57
PROVIDERS: ATTEND Obstetrics & Gynecology
DX: R92.2 Inconclusive mammogram (principal)
CPT/HCPCS: 77066

== ENCOUNTER → 2019-12-06 | Outpatient (CLI) | payer MEDICARE ==
[~2019-12-06] MED LIST changes: -ACET-77 PO; +ACET-78 PO
--- NOTE | 2019-12-07 12:57 | Diagnostic Imaging Report ---
INDICATION: Routine screening. Comparison is made with prior mammogram from 10/24/2018 and 09/14/2017. 2-D and 3-D bilateral screening mammography was performed with CAD. Scattered fibroglandular densities are identified bilaterally. The parenchymal pattern is stable. No mass or malignant appearing microcalcifications are seen. Axillae are unremarkable. IMPRESSION: BI-RADS Category 1 No mammographic features suspicious for malignancy are identified. ACR BI-RADS Category 1: Negative. Result letter will be mailed to the patient. Note: At least 10% of breast cancer is not imaged by mammography. Dictated by: Dictated on workstation # [id number]
== END ==
LOC: RAD 14:59
PROVIDERS: ATTEND Nurse Practitioner Women's Health
DX: Z12.31 Encounter for screening mammogram for malignant neoplasm of breast (principal)
CPT/HCPCS: 77063; 77067

== ENCOUNTER → 2020-12-16 | Outpatient (CLI) | payer MEDICARE ==
--- NOTE | 2020-12-16 18:34 | Diagnostic Imaging Report ---
EXAM: Digital mammogram, bilateral screening COMPARISONS: This study was compared to the prior exams of 12/06/2019, 10/24/2018, 05/16/2018 and 09/14/2017. At this time, there are no current complaints. There are scattered fibroglandular densities in both breasts which could obscure a lesion. Overall, there has been no significant change. The small asymmetry deep in the midportion of the left breast seen on multiple prior exams is again evident and no different. There is no primary or secondary sign of malignancy noted. IMPRESSION: 1. There is no evidence for malignancy. ACR category 1 ACR BI-RADS Category 1: Negative. Result letter will be mailed to the patient. Note: At least 10% of breast cancer is not imaged by mammography. Dictated by: Dictated on workstation # [id number]
== END ==
LOC: RAD 15:11
PROVIDERS: ATTEND Obstetrics & Gynecology
DX: Z12.31 Encounter for screening mammogram for malignant neoplasm of breast (principal)
CPT/HCPCS: 77063; 77067

== ENCOUNTER → 2021-12-23 | Outpatient (CLI) | payer MEDICARE ==
[~2021-12-23] MED LIST changes: +OMEP20TA56 PO; -OMEP20TA7 PO; +POTA-177 PO; -POTA10TA36 PO
--- NOTE | 2021-12-23 16:05 | Diagnostic Imaging Report ---
Indication: Routine screening. Comparison is made with prior mammograms 12/16/2020 and 12/06/2019. 2-D and 3-D bilateral screening mammography was performed with CAD. Scattered fibroglandular densities are identified bilaterally. A density in the central left breast appears stable. No new mass or malignant-appearing microcalcifications are seen. Axillae are unremarkable. IMPRESSION: BI-RADS Category 2 No mammographic features suspicious for malignancy are identified. ACR BI-RADS Category 2: Benign findings. Result letter will be mailed to the patient. Note: At least 10% of breast cancer is not imaged by mammography. Dictated by: Dictated on workstation # [id number]
== END ==
LOC: RAD 12:46
PROVIDERS: ATTEND Obstetrics & Gynecology
DX: Z12.31 Encounter for screening mammogram for malignant neoplasm of breast (principal)
CPT/HCPCS: 77063; 77067

== ENCOUNTER → 2022-12-29 | Outpatient (CLI) | payer MEDICARE ==
[~2022-12-29] MED LIST changes: -POTA10CA43 PO; +POTA10CA84 PO
--- NOTE | 2022-12-29 16:01 | Diagnostic Imaging Report ---
INDICATION: Routine screening. COMPARISON: 12/23/2021 and 12/16/2020. TECHNIQUE: 2D and 3D bilateral screening mammography was performed with CAD. FINDINGS: Scattered fibroglandular densities are identified bilaterally. The parenchymal pattern is stable. No mass or malignant-appearing microcalcifications are identified. The axillae are unremarkable. IMPRESSION: No mammographic features suspicious for malignancy are identified. ACR BI-RADS Category 1: Negative. Result letter will be mailed to the patient. Note: At least 10% of breast cancer is not imaged by mammography. Dictated by: Dictated on workstation # [id number]
== END ==
LOC: RAD 11:15
PROVIDERS: ATTEND Obstetrics & Gynecology
DX: Z12.31 Encounter for screening mammogram for malignant neoplasm of breast (principal)
CPT/HCPCS: 77063; 77067